=== PATIENT | male | born 1975 | race Caucasian/White ===

== ENCOUNTER 2020-09-22 22:24 | Observation (INO) | payer OTHER, SELFPAY ==
--- NOTE | ~2020-09-22 | XR_ITS ---
EXAMINATION: XR chest 2V 09/22/2020 22:49 INDICATION: There are chest pain PROCEDURE: PA and lateral views of the chest COMPARISON: Comparison to multiple prior studies sequentially, with oldest reviewed study dated 08/07. FINDINGS: The lungs are clear. The cardiomediastinal silhouette is within normal limits. There are no pleural effusions. There is no pneumothorax suspected. IMPRESSION: 1: NO ACUTE CARDIOPULMONARY DISEASE. Reviewed, dictated and finalized at location A. IC INFORMATION SPECIALIST
--- NOTE | ~2020-09-22 | CT_ITS ---
EXAMINATION: CTA chest abdomen pelvis DATE: 09/23/2020 09:05 UNION ORGANIZER INDICATION: Hypertension. Severe chest pain. TECHNIQUE: Computed tomographic angiography (CTA) of the chest, abdomen, and pelvis was performed wit hout and with 100 mL Omnipaque-350 intravenous contrast. The dose-length product was 759.95 mGy-cm. M aximum intensity projection 3D-reconstructions of the aorta and other arteries were constructed by samira gomez technologist on a separate workstation. COMPARISON: CT dated 11/06/2016. FINDINGS: CHEST CTA: No evidence for aortic aneurysm or dissection. Mild atherosclerosis. Heart size normal. No pleural or pericardial effusion. No lymphadenopathy. Bibasilar dependent atelectasis. No suspicious pulmonary n odules or masses. No endobronchial lesions. No focal airspace disease. No pneumothorax. ABDOMEN AND PELVIS CTA: The liver, spleen, pancreas, adrenal glands and kidneys are unremarkable. Gallbladder is present. No evidence for aortic aneurysm or dissection. Major mesenteric vessels are patent. No lymphadenopathy. Gallbladder is present. Nonobstructive bowel gas pattern. No free air or free fluid. No acute osseous abnormality. IMPRESSION: 1. No acute abnormality of the chest, abdomen or pelvis. No significant vascular abnormality. Reviewed, dictated and finalized at location A. N ORGANIZER IMPRESSION: 1. No acute abnormality of the chest, abdomen or pelvis. No significant vascula r abnormality.
[2020-09-22 22:27] VITALS: BP 156/95; PULSE 81; RESP 25; TEMP 36.4; O2SAT 100
--- NOTE | 2020-09-22 22:38 | ECG_ITS ---
Measurements Intervals [place] Rate: 80 P: 68 DE: 146 QRS: 15 QRSD: 97 T: 19 QT: 385 QTc: 444 Interpretive Statements SINUS RHYTHM WITH SINUS ARRHYTHMIA BASELINE ARTIFACT- II, III, AVR, AVF NORMAL ECG Electronically Signed On 09-23-2020 7:15:33 OPTICAL LABORATORY MANAGER by Tacos Bustillo D.O.
--- NOTE | 2020-09-22 22:39 | ED.CHESTPAIN ---
HPI - Chest Pain General Chief Complaint: Chest Pain Stated Complaint: chest pain radiating to right side Time Seen by Provider: 09/22/20 22:28 Source: patient Mode of arrival: ambulatory Limitations: no limitations History of Present Illness HPI narrative: This patient is a 44 year old male who presents for evaluation of right anterior chest pain that has been present for 4 days. He reports pain has been constant and it is gradually worsening. His pain is worse with laying down. He states tonight he was unable to lay down to go to sleep so he came to the ER. He has been taking aleve and tramadol without relief. He denies cough, fever, abdominal pain, nausea, vomiting. He states he feels short of breath because of the pain. He denies similar pain in the past. He also reports the pain radiates down his right arm. HE denies back pain. Related Data Home Medications Medication Instructions Recorded Confirmed No Home Medications 09/22/20 09/22/20 Allergies Allergy/AdvReac Type Severity Reaction Status Date / Time levofloxacin Allergy Intermediate Hives / Verified 11/23/19 09:06 Red Face Review of Systems Review of Systems: All systems reviewed & are unremarkable except as noted in HPI and below PMFSH Past Medical History Medical History Patient denies medical problems Surgical History Surgical History H/O hernia repair Family History Family History Father Family history of malignant melanoma Mother Family history of lupus erythematosus Social History Social History Smoking status: Never smoker Second hand tobacco smoke exposure: Yes Alcohol intake: current Drinks per week: 6 Substance use: never Substance use type: does not use Spiritual care concerns: No Exam Narrative: Exam Narrative: GENERAL: Well-appearing, well-nourished, and in no acute distress. HEAD: Normocephalic, atraumatic EYES: PERRLA and EOMI, conjunctiva clear without discharge THROAT:Mucous membranes moist, Oropharynx normal without erythema, exudate, peritonsillar swelling or fluctuance NECK: Supple, without lymphadenopathy or mass RESPIRATORY: No respiratory distress, Airway patent, Respirations non-labored, Clear to auscultation without rales, rhonchi or wheeze, chest nontender HEART: Regular rate and rhythm. No murmur heard. Normal peripheral pulses. ABDOMEN: Soft, nontender, nondistended, normal active bowel sounds. No masses. No rebound or guarding, No organomegaly. EXTREMITIES: No edema, normal strength with full range of motion. SKIN: Warm, dry, normal color without rash NEURO: Alert and oriented x3. CN 2-12 grossly intact. No focal deficits. PSYCH: Normal mood and affect. Const: General: alert Orientation/consciousness: patient oriented x3 Course Reevaluation(s) Reevaluation #1: PAtient report his pain initially improved but it is worsening again. He reports some improvement with nitro initially. I have discussed with patient that evaluation has been unremarkable . Given the severity of pain and unknown cause he is agreeable to observation. Date: 09/23/20 Time: 03:30 Consultations Consultation #1: I Discussed with dR. Lazaro. He states they will consult and patient should be admitted to hospitalist. Date: 09/23/20 Time: 03:35 Consultation #2: I discussed case with DR. Fatima who accepts patient to IMU Date: 09/23/20 Time: 03:39 Vital Signs Vital signs: Vital Signs Temperature 97.5 F L 09/22/20 22:27 Pulse Rate 81 09/22/20 22:27 Respiratory Rate 25 H 09/22/20 22:27 Blood Pressure 156/95 H 09/22/20 22:27 Pulse Oximetry 100 09/22/20 22:27 Temperature 98.1 F 09/23/20 04:39 Pulse Rate 80 09/23/20 06:00 Respiratory Rate 17 09/23/20 04:39 Blood Pressure
[2020-09-22 22:52] LABS: Basophils Absolute Auto 0.1 K/mm3 (0.0-0.1); Basophils Percent Auto 1.4 % (0.2-1.2); Eosinophils Absolute Auto 0.2 K/mm3 (0-0.3); Eosinophils Percent Auto 2.2 % (0-4.4); Hematocrit 44.1 % (42.0-52.0); Hemoglobin 15.5 g/dL (14.0-18.0); Immature Granulocyte Absolute 0.03 K/mm3 (0.00-0.031); Immature Granulocyte Percent A 0.4 % (0-0.5); Lymphocytes Percent Auto 38.7 % (18.3-44.2); Mean Corpuscular HGB Conc 35.1 g/dl (32-36); Mean Corpuscular Volume 90.9 fl (80-100); Mean Platelet Volume 10.7 fl (7.4-10.4); Monocytes Absolute Auto 0.7 K/mm3 (0.1-0.6); Monocytes Percent Auto 9.4 % (2.6-8.5); Neutrophils Absolute Auto 3.5 K/mm3 (1.3-6.7); Neutrophils Percent Auto 47.9 % (45.5-73.1); Platelet Count Result 242 k/mm3 (150-375); Red Blood Count 4.85 M/mm3 (4.6-6.20); Red Cell Distribution Width 11.8 % (11.5-14.5); White Blood Count 7.2 K/mm3 (4.5-10.0)
[2020-09-22] MEDS: MORPHINE SULFATE (*CRX) 4 MG/ML INJ 6 MG IV PUSH (22:54)
[2020-09-22] MEDS: ONDANSETRON INJ 4 MG/2 ML VIAL IV PUSH ×2 (22:54→23:47)
[2020-09-22 23:06] LABS: INR 0.9; Prothrombin Time 12.4 Seconds (11.1-14.7)
[2020-09-22 23:07] LABS: Partial Thromboplastin Time 27.2 SECONDS (22.3-36.8)
[2020-09-22 23:10] LABS: Alanine Aminotransferase 35 U/L (4-50); Albumin Level 4.7 g/dL (3.5-5.1); Alkaline Phosphatase 89 U/L (38-126); Anion Gap 8 mmol/L (8-16); Aspartate Amino Transferase 33 U/L (17-59); Bilirubin,Total 0.5 mg/dL (0.2-1.3); Blood Urea Nitrogen 14 mg/dL (9-20); Calcium 9.3 mg/dL (8.4-10.2); Carbon Dioxide 27 mmol/L (22-30); Chloride 103 mmol/L (98-107); Estimated CRCL calculation 99 ml/min; Estimated Glomerular Filt Rate > 60; Glucose 126 mg/dL (75-110); Lipase 104 U/L (23-300); Sodium 138 mmol/L (137-145)
[2020-09-22 23:16] LABS: Troponin I < 0.012 ng/mL (0.000-0.034)
[2020-09-22 23:23] LABS: D Dimer 0.27 ug/mL (<0.48)
[2020-09-23] VITALS (14 sets, daily range): BP systolic 114–135; BP diastolic 56–91; PULSE 58–83; RESP 14–70; TEMP 36.7–36.8; O2SAT 94–99; BMI 25.3
[2020-09-23] MEDS: NITROGLYCERIN SL 0.4 MG TABLET SUBLINGUAL (01:24)
--- NOTE | 2020-09-23 01:51 | PC.NURSE ---
pt given nitro x 3 q 5 minutes, unable to document all nitro on mar
[2020-09-23] MEDS: SODIUM CHLORIDE 0.9% IV 50 ML 150 ML (02:19)
[2020-09-23] MEDS: PROMETHAZINE HCL 25 MG/ML AMPUL 12.5 MG IV PUSH (02:19)
[2020-09-23 02:29] LABS: Troponin I < 0.012 ng/mL (0.000-0.034)
[2020-09-23] MEDS: HYDROmorphone HCL INJ (*CRX) 1 MG/ML SYR 0.5 MG IV PUSH (03:13)
--- NOTE | 2020-09-23 04:26 | PM.IMHP ---
H&P: HPI History of Present Illness Date/Time: 09/23/20 04:26 Chief Complaint: chest pain Narrative: This is a pleasant 44 year old male who is previously known to be healthy who presented to the hospital with right sided chest pain for the past 4 days. His chest pain started while he was at work this past Thursday and is described as constant, sharp, and stabbing. His pain is worse with lying down and radiated down his right arm. He felt like his chest pain might improve with time and so he waited a few days before coming to the ER. He denies any recent illness, trauma, coughing, abdominal pain, shoulder pain, nausea, vomiting, dizziness, back pain, flank pain, hematuria, dysuria, or palpitations. Associated symptoms include mild shortness of breath when his pain is severe. He denies any tobacco use. He has no history of previous episodes and denies any history of heart disease. The patient has used over the counter NSAIDS at home which have not helped. In the ER tonight his pain was improved with nitroglycerin. The patient is not known to take any medications. Routine labs were obtained which were unremarkable. CTA chest was negative for acute PE. Cardiology was consulted by ER provider who requested that we admit the patient to the hospital and they will evaluate him in the morning. No other complaints. Review of Systems Review of Systems: All systems reviewed & are unremarkable except as noted in HPI and below PMFSH Past Medical History Medical History Patient denies medical problems Surgical History Surgical History H/O hernia repair Family History Family History Father Family history of malignant melanoma Mother Family history of lupus erythematosus Social History Social History Smoking status: Never smoker Second hand tobacco smoke exposure: Yes Alcohol intake: current Drinks per week: 6 Substance use: never Substance use type: does not use Spiritual care concerns: No Meds Home Medications and Allergies Home Medications Medication Instructions Recorded Confirmed Type No Home Medications 09/22/20 09/22/20 History naproxen 375 mg PO BID PRN #20 tablet 09/23/20 Rx pantoprazole 40 mg PO QAM 14 Days #14 tablet 09/23/20 Rx prednisone 10 mg PO DAILY 7 Days #7 tablet 09/23/20 Rx Allergies Allergy/AdvReac Type Severity Reaction Status Date / Time levofloxacin Allergy Intermediate Hives / Verified 11/23/19 09:06 Red Face Vital Signs Vital Signs - 24 hr 09/22/20 22:27 09/23/20 00:26 09/23/20 01:24 Temperature 36.4 C L Pulse Rate 81 69 83 Respiratory Rate 25 H 70 H 14 Blood Pressure 156/95 H 129/66 135/91 H Pulse Oximetry 100 97 97 09/23/20 01:35 09/23/20 02:20 09/23/20 03:14 Temperature Pulse Rate 78 66 58 L Respiratory Rate 16 16 Blood Pressure 125/56 L 125/56 L 119/87 Pulse Oximetry 98 97 96 09/23/20 04:14 Temperature Pulse Rate 62 Respiratory Rate 14 Blood Pressure 120/75 Pulse Oximetry 94 Exam Const: General: cooperative, healthy appearing, no acute distress, alert and awake Nutritional Appearance: well nourished Orientation/consciousness: patient oriented x3 HENMT: Head: normal to inspection General nose exam: Normal external nose present Face and sinus: normal facial exam Mouth: Yes Normal oral and palatal mucosa present and Yes oropharynx normal Eyes: Pupils: Equal, round and reactive pupils present EOM: EOMs intact bilaterally Neck: Neck: supple and no JVD Thyroid: thyroid normal Lymphatic: lymphadenopathy not noted Chest: Chest palpation & inspection: normal inspection of the chest, normal palpation of entire chest wall and no localized rib tenderness Resp: Effort & Inspection: normal respiratory effort
--- NOTE | 2020-09-23 04:27 | ADMGEN ---
This patient, Rocky Virgen, was admitted to [facility]. Patient/family oriented to hospital policies and general routines including ID bracelet, bed and alarms, visiting hours, pain management, procedures, bathroom and other care routines, personal items, smoking policy, room service/diet, and visiting hours. Information on how to activate the Rapid Response Team has been discussed. Patient/Family are encouraged to report perceived risks to care and to ask questions if they do not understand what they are told or what they should do.
[2020-09-23 05:32] LABS: Troponin I < 0.012 ng/mL (0.000-0.034)
--- NOTE | 2020-09-23 07:15 | PC.NURSE ---
Patient report received from LAWSON Rachel. All questions answered and care of patient assumed.
[2020-09-23] MEDS: ASPIRIN 81 MG CHEWABLE TABLET PO (08:08)
[2020-09-23] MEDS: traMADol HCL (*CRX) 50 MG TABLET PO (08:38)
--- NOTE | 2020-09-23 09:14 | ECG_ITS ---
Measurements Intervals [place] Rate: 64 P: 58 PA: 164 QRS: 1 QRSD: 93 T: 6 QT: 416 QTc: 430 Interpretive Statements SINUS RHYTHM BORDERLINE T WAVE ABNORMALITY- INFERIOR LEADS BORDERLINE ECG Electronically Signed On 09-23-2020 12:28:03 CARD FIXER by Tacos Bustillo D.O.
--- NOTE | 2020-09-23 10:06 | PM.CNCAR ---
Assessment and Plan Assessment and plan (1) Right-sided chest pain: Code(s): R07.9 - Chest pain, unspecified Status: Acute Assessment and Plan: This is clearly not coronary pain. Despite a normal EKG and negative troponins, he is had consistent/constant pain for 4 days. In talking to the patient, I do not think he had improvement with nitroglycerin. He received other medications around that time including morphine and that he received nitroglycerin on 2 more occasions in the ER without relief and in fact he states his pain was worsening. His symptoms also do not correlate to pericarditis. EKG does not support pericarditis nor does his clinical syndrome support pericarditis. Likely musculoskeletal in etiology. Will discontinue aspirin and I will give him 15 mg IV Toradol x1. No further cardiac workup indicated at this point History of Present Illness History of Present Illness Consult date/time: 09/23/20 10:06 Requesting physician: Jeimy Camara MD Consult reason: chest pain Reason For Visit: Right Chest Pain Narrative: Date of service 09/23/2020 History: Patient is a 44-year-old male who has no cardiac history. 4-5 days ago he started developed some right-sided chest pain. He describes as a sharp chest pain that is deep. As worsened with movement such as moving his arm or lying back. It is not worsened by breathing. He can find certain positions that improved his symptoms. He thought it was simply a ?pinched nerve?. He took some NSAIDs and Tylenol but unfortunately his symptoms did not improve. Yesterday of progressively worse to the point that he could not stand it anymore and he came to the hospital. He was given morphine and nitroglycerin all around the same time. Initially there was information provided that his nitroglycerin helped however the patient readily admits that he was given other medications around the same time. Additionally he was given 2 more doses of nitroglycerin and during that time his pain progressively worsened. He has had constant pain throughout the last 4 days except for a again whenever he can find a comfortable position. His EKG is unremarkable and his troponins are negative. Whenever his pain is significant, he does have some dyspnea but otherwise no nausea or diaphoresis. He denies any syncope, presyncope, paroxysmal nocturnal dyspnea, orthopnea, edema or palpitations. Review of Systems Review of Systems: All systems reviewed & are unremarkable except as noted in HPI and below Constitutional: Constitutional: Denies weakness Eyes: Eyes: Denies blurry vision ENT: Denies Normal hearing present Cardiovascular: Cardiovascular: Reports chest pain Respiratory: Respiratory: Denies wheezing Gastrointestinal: Gastrointestinal: Denies abdominal pain Genitourinary: Genitourinary: Denies dysuria Musculoskeletal: Musculoskeletal: Denies back pain and Denies neck pain Integumentary/Breasts: Skin/Breast: Denies dry skin and Denies unusual bruising Neurologic: Denies headache(s) and Denies numbness Psychiatric: Psychiatric: Denies anxiety and Denies confusion Endocrine: Endocrine: Denies fatigue Hematologic/Lymphatic: Hematologic/Lymphatic: Denies easy bleeding Allergic/Immunologic: Allergic/Immunologic: Denies GI upset with certain foods and Denies lip swelling PMFSH Past Medical History Medical History Patient denies medical problems Surgical History Surgical History H/O hernia repair Family History Family History Father Family history of malignant melanoma Mother Family history of lupus erythematosus Social History Social History Smoking status: Never smoker Second hand tobacco smoke exposure: Yes Alcohol intake: current Drinks
[2020-09-23] MEDS: KETOROLAC 15 MG/ML VIAL (*BKC) IV PUSH (10:36)
[2020-09-23] MEDS: predniSONE 20 MG TABLET 60 MG PO (10:55)
--- NOTE | 2020-09-23 11:31 | PC.NURSE ---
Patient continues to complain of pain despite IV Toradol. K-pad applied to right chest/shoulder
--- NOTE | 2020-09-23 12:18 | PC.NURSE ---
Patient appears to be asleep. Resting quietly with eyes closed. No signs of distress noted. Heating pad in place.
--- NOTE | 2020-09-23 14:25 | PC.NURSE ---
Pt awake. Reports that he is feeling better. States pain is now a 3-4/10 which is improved from the 7-8/10 he was complaining of earlier in the day. Heating pad remains in place.
--- NOTE | 2020-09-23 17:11 | PC.NURSE ---
Patient discharged home via private vehicle with family. All patient discharge instructions including new medications, follow up instructions, and what to do in the case of worsening symptoms reviewed with patient. Verbal understanding given.
--- NOTE | 2020-09-23 21:28 | PM.DS ---
DS: Admitting Diagnosis Admitting Diagnosis Admitting Diagnosis: Chest pain. DS: Discharge Diagnosis Discharge Diagnosis (1) Right-sided chest pain: Code(s): R07.9 - Chest pain, unspecified Status: Acute Assessment and Plan: Date of Admisson 09/23/20 Date of Discharge/DOS 09/23/20 Mr. Virgen is a pleasant 44yo M who presented to the ED for evaluation of right-sided chest pain that began around 4 days prior to arrival, worsening. His pain was just behind right nipple and described as constant, sharp, and stabbing. His pain was positional; worse with lying flat, improved with sitting up. He described NSAIDs at home have not helped. He was admitted to observation to rule out ACS. Troponins were negative. He was evaluated by cardiology and ACS is not suspected. CTA chest is clear. Lipase is normal. At this time, the etiology of his pain is unclear but does seem to be musculoskeletal in nature. Not clinically consistent with pericarditis. Costochondritis seems less likely as his chest wall is not tender to palpation. He describes his pain is deeper than that, inside his chest. R shoulder not painful to manipulation. He was treated with heating pad, naproxen and prednisone in case a nerve irritation is contributing to his pain. He is not sleeping well. Unfortunately he is still experiencing pain at time of discharge however life-threatening diagnoses including acute coronary syndrome, pulmonary embolism, aneurysm, pneumothorax have been ruled out at this time and he is hemodynamically stable for discharge. He is encouraged to follow up with PCP this week. DS: Summary Hospital Course Hospital Course: See above. Time Spent with Patient Time attestation: Total time spent providing and/or coordinating discharge services: 35 minutes Exam Narrative: Exam Narrative: General: Male resting sitting up in bed in no acute distress. HEENT: Normocephalic, EOMI, oral mucosa moist. Cardiovascular: Rate and rhythm are regular. Respiratory: Lungs clear to auscultation bilaterally. Respirations even and non-labored. Tolerating room air. Abdomen: Soft, non-tender, non-distended, bowel sounds present. Extremities: Peripheral pulses intact. No edema or pain to palpation. Neuro: No focal neurological deficits. Speech is clear. DS: Data Data Completed and Pending Labs on day of discharge: Last Vital Signs Temp 98.3 F 09/23/20 08:00 Pulse 71 09/23/20 16:13 Resp 16 09/23/20 16:13 BP 124/71 09/23/20 16:13 Pulse Ox 97 09/23/20 16:13 ITS Impressions Chest X-Ray 09/23/20 08:36 IMPRESSION: 1: NO ACUTE CARDIOPULMONARY DISEASE. Chest/Abdomen/Pelvis CTA 09/23/20 09:05 IMPRESSION: 1. No acute abnormality of the chest, abdomen or pelvis. No significant vascular abnormality. Laboratory Tests 09/22/20 22:42 09/22/20 22:42 Discharge Plan Discharge Attending physician on discharge: Home [place] Consulting providers: Kelton Lazaro ; Colin Harris ; Tacos Bustillo ; Elenita Pan Discharging Clinician: Elenita Pan Anticipated Discharge Date/Time: 09/23/20 15:36 Patient Disposition: Home, Self-Care Activity: as tolerated Diet: as tolerated Discharge Instructions: Call tomorrow to schedule a hospital follow up appointment with Dr Velasquez's office this week. The cause of your pain is unclear at this time. Importantly, the work up so far shows no evidence of life-threatening causes including heart attack, infection, aneurysm/ruptured aneurysm, or blood clot in the lung. You can continue to take NSAIDs (naproxen, ibuprofen) and/or tylenol as needed for pain. Can continue using heating pad as needed for pain. If heating pad does not help, you can try an ice pack instead. Be sure to take naproxen or ibuprofen with food, as it can cause GI irritation and bleeding. You are prescribed pantoprazole, acid reducing medicine
== END 2020-09-23 16:30 | disposition home or self-care (01) ==
LOC: ANHED 22:55 → ANHCPC 09-23 03:58
PROVIDERS: Admitting Provider Family Medicine; Emergency Provider General Practice; PCP Family Medicine; Visit Provider Internal Medicine
DX: R07.9 Chest pain, unspecified (principal); R06.02 Shortness of breath
CPT/HCPCS: 36415; 71046; 71275; 74174; 80048; 80076; 83690; 84484; 85025; 85380; 85610; 85730; 93005; 96374; 96375; 96376; 99285; A9270; G0378; J1170; J1885; J2270; J2405; J2550; J7512; Q9967

== ENCOUNTER 2020-10-03 14:05 | Outpatient (CLI) | payer OTHER, SELFPAY ==
--- NOTE | ~2020-10-03 | MR_ITS ---
EXAMINATION: MR cervical spine wo con DATE: 10/03/2020 15:36 INDICATION: Anesthesia of skin. TECHNIQUE: Magnetic resonance imaging (MRI) of the cervical spine was performed without intravenous c ontrast. Sequences included sagittal T2-weighted FSE, sagittal STIR FSE, sagittal T1-weighted FSE, ax ial MERGE, and axial T2-weighted FSE. COMPARISON: None FINDINGS: There is 6 degrees dextrocurvature of cervical spine. There is kyphosis of cervical spine. Vertebral body heights are normal. There is mildly decreased disc height at C5-C6 and C6-C7. The spin al cord signal intensity is normal. The following disc levels are specifically discussed: C2-C3: The disc does not extend beyond the endplate margin. There is no uncovertebral joint osteoarth ritis. There is mild bilateral facet joint osteoarthritis. There is no neural foraminal stenosis. The re is no central canal stenosis. C3-C4: The disc does not extend beyond the endplate margin. There is mild bilateral uncovertebral sunita nt osteoarthritis. There is mild bilateral facet joint osteoarthritis. There is no neural foraminal s tenosis. There is no central canal stenosis. C4-C5: There is a central protrusion. There is mild bilateral uncovertebral joint osteoarthritis. The re is mild left facet joint osteoarthritis. There is no neural foraminal stenosis. There is no centra l canal stenosis. C5-C6: The disc is bulging. There is severe bilateral uncovertebral joint osteoarthritis. There is no facet joint osteoarthritis. There is mild bilateral neural foraminal stenosis. There is moderate chris tral canal stenosis with ventral and dorsal indentation of spinal cord. C6-C7: The disc is bulging with superimposed right central extrusion. There is no uncovertebral joint osteoarthritis. There is no facet joint osteoarthritis. There is mild right neural foraminal stenosi s. There is moderate central canal stenosis with ventral and dorsal indentation of spinal cord and as ymmetric stenosis of right lateral recess. C7-T1: The disc does not extend beyond the endplate margin. There is no uncovertebral joint osteoarth ritis. There is mild right and moderate left facet joint osteoarthritis. There is no neural foraminal stenosis. There is no central canal stenosis. IMPRESSION: 1. Moderate cervical spondylosis. Reviewed, dictated and finalized at location A. ATIONAL SPECIALIST
== END 2020-10-03 14:06 | disposition home or self-care (01) ==
PROVIDERS: Family Provider Family Medicine; PCP Family Medicine; Visit Provider Physician Assistant Medical
DX: R20.0 Anesthesia of skin (principal); R20.2 Paresthesia of skin; R07.89 Other chest pain; M79.601 Pain in right arm; M47.813 Spondylosis without myelopathy or radiculopathy, cervicothoracic region; M48.03 Spinal stenosis, cervicothoracic region
CPT/HCPCS: 72141

== ENCOUNTER → 2023-09-08 16:14 | Outpatient (CLI) | payer BC, SELFPAY ==
--- NOTE | ~2023-09-08 | XR_ITS ---
XR knee RT min 4V DATE: 09/08/2023 16:40 INDICATION: Right knee pain TECHNIQUE: 4 views COMPARISON: None FINDINGS: No fracture or dislocation or joint effusion, periosteal reaction or bone destruction, radi opaque intra-articular loose body or chondrocalcinosis is detected. Joint spaces are well preserved. IMPRESSION: No significant abnormality Reviewed, dictated and finalized at location L. LING MACHINE OPERATOR IMPRESSION: No significant abnormality
--- NOTE | ~2023-09-08 | XR_ITS ---
XR knee LT min 4V DATE: 09/08/2023 16:40 INDICATION: Left knee pain TECHNIQUE: 4 views COMPARISON: None FINDINGS: Probable old proximal tibial and fibular shaft fractures with prominent bony ridging of the se 2 bones across the interosseous membrane No recent fracture or dislocation, periosteal reaction or bone destruction, severe joint space narrow ing, radiopaque intra-articular loose body or chondrocalcinosis is detected. IMPRESSION: Old healed fracture deformities of the proximal tibial and fibular shafts with prominent bony bridge connecting these 2 bones across the interosseous membrane Reviewed, dictated and finalized at location L. LER SECTIONS ASSEMBLER IMPRESSION: Old healed fracture deformities of the proximal tibial and fibular shafts with prominent bony bridge connecting these 2 bones across the interosse ous membrane
== END ==
PROVIDERS: PCP Nurse Practitioner Family; Visit Provider Nurse Practitioner Family
DX: M25.561 Pain in right knee (principal); M25.562 Pain in left knee; S89.90XA Unspecified injury of unspecified lower leg, initial encounter; X58.XXXA Exposure to other specified factors, initial encounter
CPT/HCPCS: 73564

== ENCOUNTER → 2023-09-14 15:33 | Outpatient (CLI) | payer BC, SELFPAY ==
--- NOTE | ~2023-09-14 | MR_ITS ---
EXAMINATION: MR knee LT wo con DATE: 09/14/2023 16:09 INDICATION: Unspecified fracture of the left knee present generalized left knee pain and swelling pos t injury a few weeks prior. TECHNIQUE: Magnetic resonance imaging (MRI) of the left knee was performed without intravenous contra st. Sequences included coronal PD-weighted FSE, coronal PD-weighted FS FSE, sagittal T2-weighted FSE , sagittal PD-weighted FS FSE and axial PD weighted fat saturated FSE. COMPARISON: Left knee radiographs dated 09/08/2023 FINDINGS: Medial compartment: Longitudinal horizontal tear extending to the inferior articular surface of the posterior horn of the medial meniscus. There is suggestion of a small radial tear along the inner free edge of the medial meniscal body. Mild partial-thickness cartilage loss with smooth chondral surface along the medial ma rgin of the medial tibial plateau and anterior weightbearing medial femoral condyle. There is mild humphrey barticular edema-like signal change at the medial rim of the medial tibial plateau which could be rel ated to overlying chondromalacia or altered stress distribution resulting from the medial meniscal te ar and small amount of medial extrusion of the medial meniscal body. Lateral compartment: Lateral meniscus is normal. Articular cartilage is normal. Patellofemoral compartment: Partial-thickness chondral ulceration and deep fissuring at the medial patellar facet. Additional timmy p chondral fissuring at the medial side of the lateral facet. Additional partial thickness chondral u lceration and deep fissuring at the trochlear groove. Additional partial thickness chondral fissure e xtending across the medial trochlea. No degenerative subchondral changes. Ligaments and tendons: Anterior and posterior cruciate ligaments are normal. Mild thickening and increased signal along the anterior aspect of the medial collateral ligament with surrounding soft tissue edema consistent with likely recent moderate grade sprain/partial tear. The patellar tendon is normal. Small enthesophytes and minimal tendinopathy at the distal quadriceps tendon. The visualized medial and lateral hamstring tendons as well as the iliotibial band are normal. Fluid: Moderate-sized left knee joint effusion with associated mild synovitis at the suprapatellar pouch. No loose osteochondral bodies identified. Osseous/other: Normal marrow signal aside from the small region of mild edema-like signal change at the rim of the m edial tibial plateau. There are 3 small low signal intensity bone islands along the lateral femoral c ondyle. No fracture or pathologic marrow replacing process. IMPRESSION: 1. Medial meniscal tear. 2. 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 3. Likely recent moderate grade sprain of the proximal medial collateral ligament. 4. Likely reactive moderate sized left knee joint effusion. Reviewed, dictated and finalized at location A. ICE REGISTERED NURSE IMPRESSION: 1. Medial meniscal tear. 2. 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 3. Likely recent moderate grade sprain of the proximal medial collateral ligame nt. 4. Likely reactive moderate sized left knee joint effusion.
== END ==
PROVIDERS: PCP Nurse Practitioner Family; Visit Provider Nurse Practitioner Family
DX: S83.242A Other tear of medial meniscus, current injury, left knee, initial encounter (principal); M17.12 Unilateral primary osteoarthritis, left knee; M22.42 Chondromalacia patellae, left knee; X58.XXXA Exposure to other specified factors, initial encounter
CPT/HCPCS: 73721